=== PATIENT | male | born 2005 | race Caucasian/White ===

== ENCOUNTER 2024-05-10 14:31 | Inpatient (IN) | payer OTHER ==
[2024-05-10 15:06] LABS: #Basophils 0.04 10x3/uL (0.0-0.2); %Basophils 0.6 % (0.0-1.0); %Eosinophils 4.5 % (0.0-10.0); %Lymphocytes 26.5 % (28.0-48.0); %Monocytes 9.8 % (0.0-4.0); %Neutrophils 58.4 % (31.0-61.0); Hematocrit 49.8 % (42.0-52.0); Hemoglobin 17.4 g/dL (14.0-18.0); Mean Corpuscular HGB CONC 34.9 g/dL (32.0-36.0); Mean Corpuscular Hemoglobin 30.5 pg (25.0-35.0); Mean Corpuscular Volume 87.2 fL (78.0-98.0); Mean Platelet Volume 8.4 fL (7.4-10.4); Platelet Count 257 10x3/uL (130-400); RBC Distribution Width 11.4 % (11.5-14.5); Red Blood Cell (RBC) Count 5.71 mill/uL (4.00-5.20)
[2024-05-10 15:37] LABS: ALT (SGPT) 123 U/L (8-55); AST (SGOT) 540 U/L (10-45); Albumin 4.4 g/dL (3.5-5.0); Alkaline Phosphatase 73 U/L (50-130); Anion Gap 11 mmol/L (10-20); BUN (Urea Nitrogen) 9 mg/dL (8.4-21.0); Bilirubin, Total 0.8 mg/dL (0.2-1.2); Calc. Creatinine Clearance 0 mL/min (70-130); Calcium 9.7 mg/dL (7.8-10.44); Carbon Dioxide 25 mmol/L (22-29); Chloride 105 mmol/L (98-107); Estimated GFR 131; Globulin 3.1 g/dL (2.4-3.5); Glucose 84 mg/dL (70-105); Potassium 3.9 mmol/L (3.5-5.1); Protein, Total 7.5 g/dL (6.0-8.3); Sodium 137 mmol/L (136-145)
[2024-05-10 16:23] LABS: CK (CPK) 38252 U/L (30-200)
[2024-05-10 17:01] LABS: Bacteria/HPF None Seen HPF (None Seen); Bilirubin Negative (Negative); Blood, Urine 3+ (Negative); CAUTI Indications for Culture Pelvic or flank pain; Clarity Clear (Clear); Glucose, Urine (Dipstick) Normal (Negative); Ketone, Urine Negative (Negative); Leukocyte Negative Leu/uL (Negative); Nitrite Negative (Negative); Protein, Urine (Dipstick) Negative (Neg-Trace); RBC/HPF None Seen HPF (0-3); Specific Gravity, Urine 1.001 (1.002-1.036); Squamous Epithelial None Seen HPF (0-3); Urobilinogen Normal mg/dL (Less than 2); WBC/HPF None Seen HPF (0-3)
[2024-05-10 17:04] LABS: HBsAg Index 0.26 S/CO (0-0.99); Hep A IgM AB NONREACTIVE (NonReactive); Hep A IgM S/CO 0.18 S/CO (0-0.79); Hep B Surf Ag NONREACTIVE S/CO (NonReactive); Hep C IgG Ab NONREACTIVE S/CO (NonReactive); Hep C Index 0.37 S/CO (0-0.79); Hepatitis B Core IgM Abs NONREACTIVE S/CO (NonReactive)
[2024-05-10 17:43] LABS: Urine Culture Reflex No No
[2024-05-10] MEDS ORDERED: Acetaminophen 325 MG TAB PO PRN (18:15)
[2024-05-10] MEDS ORDERED: Ondansetron ODT 4 MG TAB SL PRN (18:15)
[2024-05-10] MEDS ORDERED: Ondansetron PF 4 MG/2 ML Vial IVP PRN (18:15)
[2024-05-10 18:46] LABS: Phosphorus 3.2 mg/dL (2.3-4.7)
[2024-05-10] MEDS: Lactated Ringer's 1,000 ML IV SCH ×2 (19:01→19:02)
[2024-05-10 19:24] VITALS: BMI 22.3
[2024-05-11] MEDS: Lactated Ringer's 1,000 ML IV SCH ×6 (00:10→17:26)
[2024-05-11 01:03] LABS: Anion Gap 14 mmol/L (10-20); BUN (Urea Nitrogen) 8 mg/dL (8.4-21.0); Calc. Creatinine Clearance 151 mL/min (70-130); Calcium 8.6 mg/dL (7.8-10.44); Carbon Dioxide 23 mmol/L (22-29); Chloride 105 mmol/L (98-107); Estimated GFR 127; Glucose 110 mg/dL (70-105); Magnesium 1.7 mg/dL (1.7-2.2); Phosphorus 4.4 mg/dL (2.3-4.7); Potassium 3.7 mmol/L (3.5-5.1); Sodium 138 mmol/L (136-145)
[2024-05-11 01:13] LABS: CK (CPK) Greater than 42670 U/L (30-200)
[2024-05-11 05:07] LABS: Phosphorus 4.3 mg/dL (2.3-4.7)
[2024-05-11 05:16] LABS: ALT (SGPT) 160 U/L (8-55); AST (SGOT) 702 U/L (10-45); Albumin 3.3 g/dL (3.5-5.0); Alkaline Phosphatase 59 U/L (50-130); Anion Gap 12 mmol/L (10-20); BUN (Urea Nitrogen) 8 mg/dL (8.4-21.0); Bilirubin, Total 0.5 mg/dL (0.2-1.2); Calc. Creatinine Clearance 172 mL/min (70-130); Calcium 8.5 mg/dL (7.8-10.44); Carbon Dioxide 23 mmol/L (22-29); Chloride 108 mmol/L (98-107); Estimated GFR 132; Globulin 2.3 g/dL (2.4-3.5); Glucose 98 mg/dL (70-105); Magnesium 1.7 mg/dL (1.7-2.2); Potassium 3.9 mmol/L (3.5-5.1); Protein, Total 5.6 g/dL (6.0-8.3); Sodium 139 mmol/L (136-145)
[2024-05-11 05:35] LABS: CK (CPK) Greater than 42670 U/L (30-200)
[2024-05-11 10:58] LABS: Bacteria/HPF None Seen HPF (None Seen); RBC/HPF 0-3 HPF (0-3); Squamous Epithelial None Seen HPF (0-3); WBC/HPF 0-3 HPF (0-3)
[2024-05-11 12:48] LABS: Bilirubin Negative (Negative); Blood, Urine 2+ (Negative); Clarity Clear (Clear); Glucose, Urine (Dipstick) Normal (Negative); Ketone, Urine Negative (Negative); Leukocyte Negative Leu/uL (Negative); Nitrite Negative (Negative); Protein, Urine (Dipstick) Negative (Neg-Trace); Urobilinogen Normal mg/dL (Less than 2); pH, Urine 7.5 (5.0-9.0)
[2024-05-11 12:53] LABS: Specific Gravity, Urine 1.005 (1.002-1.036)
[2024-05-12 04:41] LABS: #Basophils 0.05 10x3/uL (0.0-0.2); %Basophils 0.7 % (0.0-1.0); %Eosinophils 6.1 % (0.0-10.0); %Lymphocytes 29.1 % (28.0-48.0); %Monocytes 12.2 % (0.0-4.0); %Neutrophils 51.6 % (31.0-61.0); Hematocrit 45.4 % (42.0-52.0); Hemoglobin 16.1 g/dL (14.0-18.0); Mean Corpuscular HGB CONC 35.5 g/dL (32.0-36.0); Mean Corpuscular Hemoglobin 30.1 pg (25.0-35.0); Mean Platelet Volume 8.9 fL (7.4-10.4); Platelet Count 244 10x3/uL (130-400); RBC Distribution Width 11.4 % (11.5-14.5); Red Blood Cell (RBC) Count 5.34 mill/uL (4.00-5.20)
[2024-05-12 04:58] LABS: Phosphorus 4.6 mg/dL (2.3-4.7)
[2024-05-12 05:44] LABS: ALT (SGPT) 276 U/L (8-55); AST (SGOT) 1059 U/L (10-45); Albumin 3.8 g/dL (3.5-5.0); Alkaline Phosphatase 64 U/L (50-130); Anion Gap 13 mmol/L (10-20); BUN (Urea Nitrogen) 9 mg/dL (8.4-21.0); Bilirubin, Total 0.5 mg/dL (0.2-1.2); CK (CPK) Greater than 42670 U/L (30-200); Calc. Creatinine Clearance 192 mL/min (70-130); Calcium 8.9 mg/dL (7.8-10.44); Carbon Dioxide 25 mmol/L (22-29); Chloride 104 mmol/L (98-107); Estimated GFR 137; Globulin 2.7 g/dL (2.4-3.5); Glucose 96 mg/dL (70-105); Magnesium 1.7 mg/dL (1.7-2.2); Potassium 3.6 mmol/L (3.5-5.1); Protein, Total 6.5 g/dL (6.0-8.3); Sodium 138 mmol/L (136-145)
[2024-05-12 08:51] LABS: Bacteria/HPF None Seen HPF (None Seen); Bilirubin Negative (Negative); Blood, Urine Negative (Negative); Clarity Clear (Clear); Glucose, Urine (Dipstick) Normal (Negative); Ketone, Urine Negative (Negative); Leukocyte Negative Leu/uL (Negative); Nitrite Negative (Negative); Protein, Urine (Dipstick) Negative (Neg-Trace); RBC/HPF 0-3 HPF (0-3); Specific Gravity, Urine 1.011 (1.002-1.036); Squamous Epithelial None Seen HPF (0-3); Urobilinogen Normal mg/dL (Less than 2); WBC/HPF 0-3 HPF (0-3); pH, Urine 6.5 (5.0-9.0)
[2024-05-12] MEDS: Acetaminophen 325 MG TAB PO PRN (11:10)
[2024-05-12 15:48] VITALS: BP 149/57; TEMP 98.2
== END 2024-05-12 18:00 | disposition home or self-care (01) | DRG 558 ==
LOC: ERS 14:31 → 2NO 16:49
PROVIDERS: ADMIT Family Medicine; ATTEND Family Medicine
DX: M62.82 Rhabdomyolysis (principal); M41.9 Scoliosis, unspecified; J30.2 Other seasonal allergic rhinitis; I10 Essential (primary) hypertension
CPT/HCPCS: 36415; 76705; 80053; 80074; 81001; 81003; 81015; 82550; 83735; 84100; 85025; 93005; J7120